=== PATIENT | male | born 1960 | race Caucasian/White ===

== ENCOUNTER 2021-03-18 22:18 | Emergency (ER) | payer OTHER, SELFPAY ==
[2021-03-18 22:20] VITALS: BP 110/72; PULSE 95; RESP 19; TEMP 37.1; O2SAT 97; BMI 28.7
--- NOTE | 2021-03-18 22:46 | DI.CT.S_ITS ---
PROCEDURE: CT ANGIO ABDOMEN PELVIS INDICATIONS: hx of SMA stent with ischemic colitis has LQ pain TECHNIQUE: After the administration of intravenous contrast, 2.5 mm sections acquired from the diaphragm to the iliac crests. 10 mm maximum intensity projection (MIP) coronal and sagittal reformats were then performed. For radiation dose reduction, the following was used: automated exposure control. COMPARISON: [facility], CT, CT CHEST ABDOMEN PELVIS WITH CONTRAST, 08/03/2017, 17:54. [facility], CT, CT ABDOMEN PELVIS WITH CONTRAST, 02/14/2021, 0:47. FINDINGS: Image quality: Excellent. Extravascular tissues: Small bilateral pleural effusions with overlying atelectasis can be seen. Heart size is normal. Liver is normal in size and enhancement. Diffuse fatty liver infiltration is noted. Gallbladder has been removed. Biliary system is non dilated. There is again seen a low-density focus uncinate process pancreas, as on series 6 image 50, measuring 18 mm, which is similar to the prior. Spleen is normal in size and enhancement. No adrenal nodules. Kidneys are normal in size and enhancement, without hydronephrosis. Simple appearing left renal cysts are seen. Areas of focal volume loss can be seen involving the left kidney. Non-opacified bowel loops demonstrate mild prominence and mild wall thickening. There is particular thickening seen involving the ascending colon and transverse colon. Small bowel loops measure up to 3.6 cm. No findings pneumatosis can be seen. No free air. There is mild ascites. No retroperitoneal or mesenteric adenopathy. A mild periumbilical hernia is seen, containing fat. Generalized anasarca is seen. No suspicious bony abnormalities. No vertebral body compression fractures. Age-appropriate bony degenerative changes are seen. Abdominal aorta: Dense atherosclerotic calcification can be seen throughout, with multiple areas of stenosis, including an approximately 80% stenosis distally. There is no flow seen within the left common iliac artery. Reduced flow seen within the left external iliac and left internal iliac arteries. Multifocal narrowing can be seen within the right iliac system. The portal vein is unremarkable. Mesenteric arteries: High-grade stenosis can be seen at the origin of the celiac axis, approximately 80%. There is a patent SMA stent seen. A robust, patent KIRT can be seen. Renal arteries: Single bilateral renal arteries are seen, without ani focal stenosis. IMPRESSION: Patent SMA stent. Generalized atherosclerotic calcification, with several areas high-grade narrowing. 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 Mild dilatation and mild wall thickening can be seen the small bowel in a generalized fashion. There is focal thickening seen involving the ascending colon and the transverse colon. These findings are consistent with ischemic colitis. However, no findings of pneumatosis can be seen. There are small bilateral pleural effusions. Mild ascites is seen. Anasarca is also seen. There is again seen a low-density lesion seen uncinate process pancreas, which may be related to a cyst or cystic neoplasm. Areas of volume loss are seen involving the left kidney. Please correlate prior episodes of infarction or infection. Incidental note is made of: Cholecystectomy Fatty liver infiltration. Simple appearing left renal cysts Fat containing periumbilical hernia Note: No significant discrepancy from the preliminary report. Dictated by: Deven Pichardo M.D. on 03/19/2021 at 7:18 Approved by: Deven Pichardo M.D. on 03/19/2021 at 7:31
--- NOTE | 2021-03-18 22:46 | ED.GENADULT ---
HPI - General Adult General Chief complaint: Abdominal Pain Stated complaint: left lower abdomen pain Time Seen by Provider: 03/18/21 22:28 Source: patient Mode of arrival: EMS Limitations: no limitations History of Present Illness HPI narrative: Patient is a 60-year-old male who was sent over by EMS from his [facility] facility for evaluation of lower abdominal pain. Approximately 10 days ago patient was seen at an outside facility where he had a stent placed in the vessels in his abdomen secondary to a blockage in the vessel. He states he has had this issue in the past. Was subsequently discharged home. Since arriving at the facility he states that the pain medication that they have been giving him does not seem to work as well as the oral Dilaudid. Sometime in the past 24 hours he has noticed an increase in his abdominal discomfort where he states that is in the lower abdomen on the left-hand side. Related Data Allergies Allergy/AdvReac Type Severity Reaction Status Date / Time bupropion [From Wellbutrin] AdvReac Verified 03/19/21 00:51 citalopram [From Celexa] AdvReac Verified 03/19/21 00:51 duloxetine [From Cymbalta] AdvReac Verified 03/19/21 00:51 fentanyl AdvReac Verified 03/19/21 00:51 gabapentin AdvReac Verified 03/19/21 00:51 guanfacine AdvReac Verified 03/19/21 00:51 hydromorphone AdvReac Verified 03/19/21 00:51 lovastatin AdvReac Verified 03/19/21 00:51 milk AdvReac Verified 03/19/21 00:51 naproxen AdvReac Verified 03/19/21 00:51 pravastatin AdvReac Verified 03/19/21 00:51 pregabalin [From Lyrica] AdvReac Verified 03/19/21 00:51 procaine AdvReac Verified 03/19/21 00:51 simvastatin AdvReac Verified 03/19/21 00:51 Eohmjvr-Eig-Nwk Reductase AdvReac Verified 03/19/21 00:51 Inhibitor Review of Systems Constitutional Constitutional: Denies fever(s) Cardiovascular Cardiovascular: Reports system reviewed and no additional complaints, except as documented Respiratory Respiratory: Reports system reviewed and no additional complaints, except as documented Gastrointestinal Gastrointestinal: Reports abdominal pain, Denies change in bowel habits, Denies nausea and Denies vomiting Genitourinary Genitourinary: Denies dysuria Genitourinary: Denies dysuria Integumentary/Breasts Skin/Breast: Denies rash Neurologic Neurologic: Reports system reviewed and no additional complaints, except as documented Hematologic/Lymphatic Hematologic/Lymphatic: Reports system reviewed and no additional complaints, except as documented Allergic/Immunologic Allergic/Immunologic: Reports system reviewed and no additional complaints, except as documented Patient History Medical History Anemia Anxiety Chronic narcotic dependence Chronic pain syndrome Coronary artery disease Depression DVT (deep venous thrombosis) Erectile dysfunction Gastroesophageal reflux disease Hyperlipidemia Hypertension Osteoporosis Social History Smoking Status: Former smoker Exam Initial Vital Signs Initial Vital Signs: Vital Signs Temperature 98.8 F 03/18/21 22:20 Pulse Rate 95 H 03/18/21 22:20 Respiratory Rate 19 03/18/21 22:20 Blood Pressure 110/72 03/18/21 22:20 Pulse Oximetry 97 03/18/21 22:20 Const General: cooperative and comfortable Limitations: mental status not altered [facility] Head: normal to inspection and normocephalic Resp Effort & Inspection: normal respiratory effort Auscultation: clear to auscultation bilaterally Cardio Rate: regular rate Rhythm: regular rhythm GI Inspection: non-distended Palpation: soft, No firm and tender (Generalized tenderness) Skin Lesions: no lesions Rashes: no rashes Neuro General: patient alert, patient awake and patient oriented x3 Cognition: normal cognition Speech: speech normal Extrem General: normal to inspection Psych Appearance: grossly normal and well kempt Course Orders Ordered: ED Orders 03/18/21 22:46 CT angio abdomen pelvis Stat 03/18/21 23:15 Complete Blood Count AUTO DIFF Stat Comprehensive Metabolic Panel Stat Lactate (Lactic Acid) Stat Lipase Stat Discontinued Medications Hydromorphone HCl (Hydromorphone 1 Mg Inj) 1 mg IV NOW ONE Stop: 03/18/21 22:51 Last Admin: 03/18/21 23:20 Dose: 1 mg Documented by: TAYLER Sodium Chloride (Normal Saline 0.9%) 1,000 mls @ 500 mls/hr IV BOLUS ONE Stop: 03/19/21 00:45 Last Infusion: 03/19/21 03:13 Dose: 0 mls/hr Documented by: Admin: 03/18/21 23:20 Dose: 500 mls/hr Documented by: TAYLER Vital Signs Vital signs: Vital Signs - 8 hr 03/18/21 22:20 03/18/21 23:27 03/18/21 23:46 Temperature 98.8 F Pulse Rate 95 H 96 H Respiratory Rate 19 16 16 Blood Pressure 110/72 110/63 118/69 Pulse Oximetry 97 03/18/21 23:47 03/19/21 00:00 03/19/21 00:30 Temperature Pulse Rate 96 H 94 H Respiratory Rate 16 Blood Pressure Pulse Oximetry 96 97 95 03/19/21 01:00 03/19/21 01:30 03/19/21 01:32 Temperature Pulse Rate 96 H 105 H 109 H Respiratory Rate Blood Pressure Pulse Oximetry 98 96 97 03/19/21 01:33 03/19/21 02:00 03/19/21 02:30 Temperature Pulse Rate 110 H 104 H 104 H Respiratory Rate Blood Pressure 118/84 Pulse Oximetry 97 96 97 03/19/21 02:57 Temperature Pulse Rate 96 H Respiratory Rate Blood Pressure 107/59 L Pulse Oximetry 97 Medical Decision Making Medical Records Medical records reviewed: Yes I reviewed the patient's medical records. Lab Data Lab results reviewed: Yes I reviewed the patient's lab results. Result diagrams: 03/18/21 23:15 03/18/21 23:15 Labs: Lab Results 03/18/21 03/18/21 03/18/21 Range/Units 23:15 23:15 23:15 WBC 5.6 (4.5-11.0) X10^3/uL RBC 3.10 L (4.5-5.9) X10^6/uL Hgb 10.4 L (13.5-17.5) g/dL Hct 32.0 L (41-53) % MCV 103.3 H (80-100) fL MCH 33.6 (26-34) PG MCHC 32.5 (30-36) % RDW 17.0 H (11.6-14.8) % Plt Count 255 (150-400) X10^3/uL Neut % (Auto) 61.7 (50-75) % Lymph % (Auto) 23.2 L (25-40) % [place] % (Auto) 12.9 (3-14) % Eos % (Auto) 1.2 L (2-4) % Baso % (Auto) 1.0 (0-2) % Neut # (Auto) 3500 (3866-3825) /uL Lymph # (Auto) 1300 (3646-3879) /uL [place] # (Auto) 700 (0-900) /uL Eos # (Auto) 100 (0-450) /uL Baso # (Auto) 100 (0-100) /uL Sodium 136 L (137-145) mmol/L Potassium 4.5 (3.4-5.1) mmol/L Chloride 108 H (98-107) mmol/L Carbon Dioxide 26 (22-32) mmol/L BUN 10 (9-20) mg/dL Creatinine 0.78 (0.66-1.25) mg/dL Estimated GFR > 60.0 (>60) mL/min BUN/Creatinine Ratio 12.8 (6-22) Glucose 91 (70-100) mg/dL Lactate 1.8 (0.7-2.1) mmol/L Calcium 7.9 L (8.4-10.2) mg/dL Total Bilirubin 1.2 (0.2-1.3) mg/dL AST 102 H (17-59) IU/L ALT 40 (<50) IU/L Alkaline Phosphatase 307 H (38-126) U/L Total Protein 5.8 L (6.3-8.2) g/dL Albumin 2.1 L (3.5-5.0) g/dL Globulin 3.7 (1.7-4.1) g/dL Albumin/Globulin Ratio 0.6 L (1.0-2.8) Lipase (23-300) U/L 03/18/21 Range/Units 23:15 WBC (4.5-11.0) X10^3/uL RBC (4.5-5.9) X10^6/uL Hgb (13.5-17.5) g/dL Hct (41-53) % MCV (80-100) fL MCH (26-34) PG MCHC (30-36) % RDW (11.6-14.8) % Plt Count (150-400) X10^3/uL Neut % (Auto) (50-75) % Lymph % (Auto) (25-40) % [place] % (Auto) (3-14) % Eos % (Auto) (2-4) % Baso % (Auto) (0-2) % Neut # (Auto) (3864-3884) /uL Lymph # (Auto) (5832-3361) /uL [place] # (Auto) (0-900) /uL Eos # (Auto) (0-450) /uL Baso # (Auto) (0-100) /uL Sodium (137-145) mmol/L Potassium (3.4-5.1) mmol/L Chloride (98-107) mmol/L Carbon Dioxide (22-32) mmol/L BUN (9-20) mg/dL Creatinine (0.66-1.25) mg/dL Estimated GFR (>60) mL/min BUN/Creatinine Ratio (6-22) Glucose (70-100) mg/dL Lactate (0.7-2.1) mmol/L Calcium (8.4-10.2) mg/dL Total Bilirubin (0.2-1.3) mg/dL AST (17-59) IU/L ALT (<50) IU/L Alkaline Phosphatase (38-126) U/L Total Protein (6.3-8.2) g/dL Albumin (3.5-5.0) g/dL Globulin (1.7-4.1) g/dL Albumin/Globulin Ratio (1.0-2.8) Lipase 51 (23-300) U/L Imaging Data CT scan - abdomen/pelvis: Radiologist's Impression: Fatty infiltration of the liver Anasarca Diffuse inflammatory thickening with enhancement of the ascending and transverse colon wall in distal small bowel wall consistent with clinical history of ischemic colitis. No signs of bowel perforation or pneumatosis at this time MDM Narrative Medical decision making narrative: Patient's labs are reassuring. The CT scan today does show findings consistent with his history of ischemic colitis. The vessels on his CTA today are patent. Was able to review notes and CT scan from his latest visit at [facility]. The CT report today is very similar to the CT reports that were performed at that time. I do not feel that the CTA changes today are new. They could potentially be causing his abdominal discomfort however I also have some suspicion that the reason that he is here is because the pain medication that he is receiving at the facility is not the oral Dilaudid which he has requested and apparently has helped in the past. I feel we can hold on further workup for now. I informed him that he would have to talk with providers at the facility about changing any of his medications. He was given return precautions. He expressed understanding and agreement. Discharge Plan Departure Patient Disposition: Home Clinical Impression: Abdominal pain Instructions: DI for Abdominal Pain-Adult Activity Restrictions/Additional Instructions: Recommend that you talk with your primary doctor about any changes in your pain medication regiment. Also follow all of the instructions given to you by the vascular surgeons. Return to the emergency department for any new or worsening symptoms
--- NOTE | 2021-03-18 22:59 | PC.NURSE ---
PIV attempt x2 unsuccessful
[2021-03-18] MEDS: HYDROMORPHONE 1 MG INJ IV (23:20)
[2021-03-18] MEDS: SODIUM CHLORIDE 0.9% 1,000 ML 500 ML IV (23:20)
[2021-03-18 23:26] LABS: Add Manual Diff / Slide Review NO; Basophils Absolute Auto 100 /uL (0-100); Eosinophils Absolute Auto 100 /uL (0-450); Eosinophils Percent Auto 1.2 % (2-4); Hemoglobin 10.4 g/dL (13.5-17.5); Lymphocytes Absolute Auto 1300 /uL (1100-4500); Lymphocytes Percent Auto 23.2 % (25-40); Mean Corpuscular HGB Conc 32.5 % (30-36); Mean Corpuscular Hemoglobin 33.6 PG (26-34); Mean Corpuscular Volume 103.3 fL (80-100); Monocytes Absolute Auto 700 /uL (0-900); Monocytes Percent Auto 12.9 % (3-14); Neutrophils Absolute Auto 3500 /uL (1500-7000); Neutrophils Percent Auto 61.7 % (50-75); Platelet Count 255 X10^3/uL (150-400); White Blood Cell Count 5.6 X10^3/uL (4.5-11.0)
[2021-03-18 23:27] VITALS: BP 110/63; PULSE 96; RESP 16
[2021-03-18 23:37] LABS: Alanine Aminotransferase 40 IU/L (<50); Albumin 2.1 g/dL (3.5-5.0); Albumin Globulin Ratio 0.6 (1.0-2.8); Alkaline Phosphatase 307 U/L (38-126); Aspartate Aminotransferase 102 IU/L (17-59); BUN Creatinine Ratio 12.8 (6-22); Bilirubin Total 1.2 mg/dL (0.2-1.3); Blood Urea Nitrogen 10 mg/dL (9-20); Calcium 7.9 mg/dL (8.4-10.2); Carbon Dioxide 26 mmol/L (22-32); Chloride 108 mmol/L (98-107); Estimated Glomerular Filt Rate > 60.0 mL/min (>60); Globulin 3.7 g/dL (1.7-4.1); Glucose 91 mg/dL (70-100); HEMOLYSIS 24 (0-50); Lactate (Lactic Acid) 1.8 mmol/L (0.7-2.1); Lipase 51 U/L (23-300); Potassium 4.5 mmol/L (3.4-5.1); Sodium 136 mmol/L (137-145); Total Protein 5.8 g/dL (6.3-8.2)
[2021-03-18 23:46] VITALS: BP 118/69; RESP 16
[2021-03-18 23:47] VITALS: O2SAT 96
[2021-03-19] VITALS (9 sets, daily range): BP systolic 107–118; BP diastolic 59–84; PULSE 94–110; RESP 16; O2SAT 95–98
== END 2021-03-19 03:15 | disposition home or self-care (01) ==
PROVIDERS: Emergency Provider Emergency Medicine
DX: R10.30 Lower abdominal pain, unspecified (principal)
CPT/HCPCS: 36415; 74174; 80053; 83605; 83690; 85025; 96361; 96374; 99284; J1170; Q9967

== ENCOUNTER 2021-03-20 19:45 | Emergency (ER) | payer OTHER, MEDICAID, SELFPAY ==
[2021-03-20] VITALS (9 sets, daily range): BP systolic 105; BP diastolic 68; PULSE 93–101; RESP 20; TEMP 36.7; O2SAT 96–99
--- NOTE | 2021-03-20 20:09 | ED_ITS ---
HPI - General Adult General Chief complaint: Urogenital-Male Stated complaint: Scrotum pain Time Seen by Provider: 03/20/21 19:46 Source: patient and EMS Mode of arrival: EMS Limitations: no limitations History of Present Illness HPI narrative: Patient is a 60-year-old male who I evaluated in the emergency department approximately 24 hours ago with abdominal discomfort. He does have a significant medical history and has had ischemic colitis and also stents placed in his SMA. A CT scan yesterday showed patent arteries but still is signs of colitis. His labs are unremarkable. He was subsequently discharged home. I felt at that time that much of his discomfort that brought him to the emergency department last evening was related to his lack of pain control at the facility where he is living. He asked several times for Dilaudid in asked me to write him a prescription for Dilaudid that he could have at the care facility. I told him that unfortunately we would be unable to do that in the emergency dep artment. We received a call from the living facility that the patient was being transported back secondary to continued abdominal pain and now also complaining of testicular pain. The patient called EMS himself from his room. Patient states that his abdomen continues to hurt and he also has left-sided groin pain. Related Data Allergies Allergy/AdvReac Type Severity Reaction Status Date / Time bupropion [From Wellbutrin] AdvReac Verified 03/19/21 00:51 citalopram [From Celexa] AdvReac Verified 03/19/21 00:51 duloxetine [From Cymbalta] AdvReac Verified 03/19/21 00:51 fentanyl AdvReac Verified 03/19/21 00:51 gabapentin AdvReac Verified 03/19/21 00:51 guanfacine AdvReac Verified 03/19/21 00:51 lovastatin AdvReac Verified 03/19/21 00:51 milk AdvReac Verified 03/19/21 00:51 naproxen AdvReac Verified 03/19/21 00:51 pravastatin AdvReac Verified 03/19/21 00:51 pregabalin [From Lyrica] AdvReac Verified 03/19/21 00:51 procaine AdvReac Verified 03/19/21 00:51 simvastatin AdvReac Verified 03/19/21 00:51 Sqgneta-Iqq-Plc Reductase AdvReac Verified 03/19/21 00:51 Inhibitor Review of Systems Constitutional Constitutional: Denies fever(s) Gastrointestinal Gastrointestinal: Reports abdominal pain Genitourinary Comments: Left-sided groin pain Integumentary/Breasts Skin/Breast: Reports system reviewed and no additional complaints, except as documented Neurologic Neurologic: Reports system reviewed and no additional complaints, except as documented Hematologic/Lymphatic On Anticoagulants: No Allergic/Immunologic Allergic/Immunologic: Reports system reviewed and no additional complaints, except as documented Patient History Medical History Anemia Anxiety Chronic narcotic dependence Chronic pain syndrome Coronary artery disease Depression DVT (deep venous thrombosis) Erectile dysfunction Gastroesophageal reflux disease Hyperlipidemia Hypertension Osteoporosis Social History Smoking Status: Former smoker Smoking Status: Former smoker Substance Use Type: former substance user Exam Initial Vital Signs Initial Vital Signs: Vital Signs Temperature 98.1 F 03/20/21 19:49 Pulse Rate 96 H 03/20/21 19:49 Respiratory Rate 20 03/20/21 19:49 Blood Pressure 105/68 03/20/21 19:49 Pulse Oximetry 96 03/20/21 19:49 Const General: cooperative HENMT Head: normal to inspection and normocephalic Resp Effort & Inspection: normal respiratory effort Auscultation: clear to auscultation bilaterally Cardio Rate: regular rate Rhythm: regular rhythm GI Palpation: soft and tender (Diffusely tender) Other: Left-sided scrotal swelling Difficult to palpate testicles Skin Lesions: no lesions Rashes: no rashes Extrem General: capillary refill normal Psych Appearance: well kempt Course Orders Ordered: ED Orders 03/20/21 20:09 US scrotum Stat 03/20/21 21:54 Consult After Hours PICC Line RN Stat 03/20/21 22:19 Complete Blood Count AUTO DIFF Stat Comprehensive Metabolic Panel Stat Lactate (Lactic Acid) Stat Lipase Stat Discontinued Medications Hydromorphone HCl (Hydromorphone 1 Mg Inj) 1 mg IV NOW ONE Stop: 03/20/21 20:14 Last Admin: 03/20/21 21:10 Dose: 1 mg Documented by: PAULA Hydromorphone HCl (Hydromorphone 1 Mg Inj) 1 mg IM NOW ONE Stop: 03/20/21 23:08 Last Admin: 03/20/21 23:31 Dose: 1 mg Documented by: KGALLAG Sodium Chloride (Normal Saline 0.9%) 1,000 mls @ 125 mls/hr IV CONT KILO Last Admin: 03/20/21 22:00 Dose: Not Given Documented by: PAULA Vital Signs Vital signs: Vital Signs - 8 hr 03/20/21 20:30 03/20/21 21:00 03/20/21 21:30 Pulse Rate 98 H 97 H 97 H Respiratory Rate Blood Pressure Pulse Oximetry 97 97 97 03/20/21 22:00 03/20/21 22:30 03/20/21 23:00 Pulse Rate 93 H 101 H 101 H Respiratory Rate Blood Pressure Pulse Oximetry 99 99 99 03/20/21 23:30 03/21/21 00:00 03/21/21 00:20 Pulse Rate 98 H 95 H 98 H Respiratory Rate Blood Pressure 98/56 L Pulse Oximetry 99 95 97 03/21/21 00:30 03/21/21 00:37 03/21/21 00:43 Pulse Rate 98 H 96 H 87 Respiratory Rate 18 Blood Pressure 87/53 L 96/53 L 98/56 L Pulse Oximetry 96 97 97 Medical Decision Making Lab Data Lab results reviewed: Yes I reviewed the patient's lab results. Result diagrams: 03/20/21 22:19 03/20/21 22:19 Labs: Lab Results 03/20/21 03/20/21 03/20/21 Range/Units 22:19 22:19 22:19 WBC 5.9 (4.5-11.0) X10^3/uL RBC 2.62 L (4.5-5.9) X10^6/uL Hgb 9.0 L (13.5-17.5) g/dL Hct 27.8 L (41-53) % MCV 106.1 H (80-100) fL MCH 34.4 H (26-34) PG MCHC 32.5 (30-36) % RDW 16.9 H (11.6-14.8) % Plt Count 256 (150-400) X10^3/uL Neut % (Auto) 66.9 (50-75) % Lymph % (Auto) 17.1 L (25-40) % [place] % (Auto) 13.2 (3-14) % Eos % (Auto) 1.0 L (2-4) % Baso % (Auto) 1.8 (0-2) % Neut # (Auto) 4000 (8214-1457) /uL Lymph # (Auto) 1000 L (8315-5114) /uL [place] # (Auto) 800 (0-900) /uL Eos # (Auto) 100 (0-450) /uL Baso # (Auto) 100 (0-100) /uL Sodium 136 L (137-145) mmol/L Potassium 4.2 (3.4-5.1) mmol/L Chloride 108 H (98-107) mmol/L Carbon Dioxide 25 (22-32) mmol/L BUN 11 (9-20) mg/dL Creatinine 0.71 (0.66-1.25) mg/dL Estimated GFR > 60.0 (>60) mL/min BUN/Creatinine Ratio 15.5 (6-22) Glucose 75 (70-100) mg/dL Lactate 1.4 (0.7-2.1) mmol/L Calcium 7.7 L (8.4-10.2) mg/dL Total Bilirubin 1.0 (0.2-1.3) mg/dL AST 69 H (17-59) IU/L ALT 29 (<50) IU/L Alkaline Phosphatase 254 H (38-126) U/L Total Protein 4.8 L (6.3-8.2) g/dL Albumin 1.7 L (3.5-5.0) g/dL Globulin 3.1 (1.7-4.1) g/dL Albumin/Globulin Ratio 0.5 L (1.0-2.8) Lipase 55 (23-300) U/L Imaging Data Scrotal ultrasound: Radiologist's Impression: Atrophic testicles in the lower inguinal canal bilateral. No testicular mass Marked scrotal wall edema MDM Narrative Medical decision making narrative: Patient's labs today are unchanged from yesterday. His abdominal exam today is the same as yesterday. He does have atrophic testicles bilaterally however the ultrasound result today is similar to what is seen on the CT scan yesterday. I had a long discussion with the patient regarding his symptoms. I asked him if he was here because he felt like he was not receiving proper pain control at the facility where he is staying or if he is having new pain. He states that his abdominal pain is continuing and he also does not think that he is getting the proper pain control. He again asked for Dilaudid and informed him that he would need to talk with the providers at the facility for this. He also states he was never told that he was going to have a reduction in his pain medication. He states that while he was in the hospital he was given pain medication every 4 hours and now he states that he is getting and every 10 hours. I informed him that if it was a pain control issue that he would need to talk with the prescribers about this but if his symptoms were worsening or if he was developing new symptoms that he should return to the emergency department because he did have significant intra-abdominal issues. I do not feel the need today based on his exam yesterday and today and his labs that we need to repeat a CT scan. Discharge Plan Departure Patient Disposition: Home Clinical Impression: Abdominal pain Instructions: DI for Chronic Pain -- Adult Activity Restrictions/Additional Instructions: Unfortunately we cannot make any changes to your pain management regiment from [facility] emergency department. This will have to come with the providers at the facility where your staying. I do recommend you continue all of your medications as directed. Return to the emergency department for any new or worsening symptoms
--- NOTE | 2021-03-20 20:09 | DI.US.S_ITS ---
PROCEDURE: US SCROTUM INDICATIONS: LEFT > RIGHT TESTICULAR PAIN TECHNIQUE: Real-time scanning was performed of the scrotum and testicles, with image documentation. Color and pulse Doppler interrogation was performed of both testicles. COMPARISON: None. FINDINGS: Right: Testicle is positioned in the lower inguinal canal and measures 2.9 x 0.9 x 1.1 cm. There is minimal intrinsic arterial flow with marked overlying edema measuring 2.1 centimeters. The epididymis on the right is not identified. Left: Testicle is positioned in the lower inguinal canal and measures 1.9 x 1.5 x 0.8 cm. There is minimal vascularity, venous with marked overlying scrotal wall edema, 2.1 centimeters. Epididymis is on the left not identified. Doppler: Color and pulse Doppler demonstrate normal and symmetric arterial flow in both testicles. IMPRESSION: 1. Atrophic testicles in the lower inguinal canal bilaterally with decreased vascularity. 2. No testicular mass. 3. Marked scrotal wall edema. Comment: Final report is concordant with preliminary interpretation by [facility] Dictated by: Jorge Pardo M.D. on 03/21/2021 at 8:06 Approved by: Jorge Pardo M.D. on 03/21/2021 at 8:12
[2021-03-20] MEDS: HYDROMORPHONE 1 MG INJ IV (21:10)
--- NOTE | 2021-03-20 22:40 | PC.NURSE ---
patient complains that his abdominal pain is worse than yesterday. He is able to pass stool and gas and is urinating frequently. He has pain in his legs and scrotum as well. His left leg has edema +[address] up his left lateral leg, hip, and buttock.
[2021-03-20 22:45] LABS: Add Manual Diff / Slide Review NO; Basophils Absolute Auto 100 /uL (0-100); Basophils Percent Auto 1.8 % (0-2); Eosinophils Absolute Auto 100 /uL (0-450); Hematocrit 27.8 % (41-53); Lymphocytes Absolute Auto 1000 /uL (1100-4500); Lymphocytes Percent Auto 17.1 % (25-40); Mean Corpuscular HGB Conc 32.5 % (30-36); Mean Corpuscular Hemoglobin 34.4 PG (26-34); Mean Corpuscular Volume 106.1 fL (80-100); Monocytes Absolute Auto 800 /uL (0-900); Monocytes Percent Auto 13.2 % (3-14); Neutrophils Absolute Auto 4000 /uL (1500-7000); Neutrophils Percent Auto 66.9 % (50-75); Platelet Count 256 X10^3/uL (150-400); Red Blood Cell Count 2.62 X10^6/uL (4.5-5.9); Red Cell Distribution Width 16.9 % (11.6-14.8); White Blood Cell Count 5.9 X10^3/uL (4.5-11.0)
[2021-03-20 22:48] LABS: Lactate (Lactic Acid) 1.4 mmol/L (0.7-2.1)
[2021-03-20 22:51] LABS: Alanine Aminotransferase 29 IU/L (<50); Albumin 1.7 g/dL (3.5-5.0); Albumin Globulin Ratio 0.5 (1.0-2.8); Alkaline Phosphatase 254 U/L (38-126); Aspartate Aminotransferase 69 IU/L (17-59); BUN Creatinine Ratio 15.5 (6-22); Blood Urea Nitrogen 11 mg/dL (9-20); Calcium 7.7 mg/dL (8.4-10.2); Carbon Dioxide 25 mmol/L (22-32); Chloride 108 mmol/L (98-107); Estimated Glomerular Filt Rate > 60.0 mL/min (>60); Globulin 3.1 g/dL (1.7-4.1); Glucose 75 mg/dL (70-100); HEMOLYSIS 21 (0-50); Lipase 55 U/L (23-300); Potassium 4.2 mmol/L (3.4-5.1); Sodium 136 mmol/L (137-145); Total Protein 4.8 g/dL (6.3-8.2)
[2021-03-20] MEDS: HYDROMORPHONE 1 MG INJ IM (23:31)
[2021-03-21] VITALS: PULSE 95; O2SAT 95
[2021-03-21 00:20] VITALS: BP 98/56; PULSE 98; O2SAT 97
[2021-03-21 00:30] VITALS: BP 87/53; PULSE 98; O2SAT 96
[2021-03-21 00:37] VITALS: BP 96/53; PULSE 96; O2SAT 97
[2021-03-21 00:43] VITALS: BP 98/56; PULSE 87; RESP 18; O2SAT 97
== END 2021-03-21 00:44 | disposition home or self-care (01) ==
PROVIDERS: Emergency Provider Emergency Medicine
DX: R10.9 Unspecified abdominal pain (principal)
CPT/HCPCS: 36415; 76870; 80053; 83605; 83690; 85025; 96372; 96374; 99283; 99284; J1170

== ENCOUNTER 2021-03-24 06:00 | Emergency (ER) | payer OTHER, MEDICAID, SELFPAY ==
[2021-03-24] VITALS (17 sets, daily range): BP systolic 96–107; BP diastolic 55–66; PULSE 85–104; RESP 14–23; TEMP 36.7; O2SAT 94–99
--- NOTE | 2021-03-24 06:27 | ED_ITS ---
HPI - Abdominal Pain <Rosalva Connors DO - Last Filed: 03/25/21 01:16> General Chief Complaint: Urogenital-Male Stated Complaint: Testicles swollen Time Seen by Provider: 03/24/21 06:08 Source: patient, EMS and old records reviewed Mode of arrival: EMS Limitations: no limitations History of Present Illness HPI narrative: Patient is a 60-year-old female with history of SMA stent for ischemic colitis on March 08 placed at [facility]. He has since been to the emergency department 2 other times this is his 3rd visit. He was initially seen on 03/18/2021 for increased pain. At that time he had an abdominal CT and blood work, and was later discharged back to the facility. He returned 24 hours later with increased scrotum pain and swelling. During that visit he had scrotal ultrasound is which showed testicular atrophy. Today he is complaining of similar pain both in his scrotum and his abdomen. He was previously getting dilaudid which he apparently is not getting any more but is now getting Percocet. He says he had a normal bowel movement yesterday. He has pain all over his abdomen. Related Data Allergies Allergy/AdvReac Type Severity Reaction Status Date / Time bupropion [From Wellbutrin] AdvReac Verified 03/19/21 00:51 citalopram [From Celexa] AdvReac Verified 03/19/21 00:51 duloxetine [From Cymbalta] AdvReac Verified 03/19/21 00:51 fentanyl AdvReac Verified 03/19/21 00:51 gabapentin AdvReac Verified 03/19/21 00:51 guanfacine AdvReac Verified 03/19/21 00:51 lovastatin AdvReac Verified 03/19/21 00:51 milk AdvReac Verified 03/19/21 00:51 naproxen AdvReac Verified 03/19/21 00:51 pravastatin AdvReac Verified 03/19/21 00:51 pregabalin [From Lyrica] AdvReac Verified 03/19/21 00:51 procaine AdvReac Verified 03/19/21 00:51 simvastatin AdvReac Verified 03/19/21 00:51 Xibwpxy-Pup-Maj Reductase AdvReac Verified 03/19/21 00:51 Inhibitor <Mallory Dolan MD - Last Filed: 03/24/21 18:24> History of Present Illness HPI narrative: 60-year-old gentleman with care assumed from Dr. Connors. Presents complaining of increasing pain and edema. He had ischemic colitis with SMA stent placed in [place] on March 08 and was eventually discharged to [facility] for rehab. He has been seen in the emergency department on March 18, and again today, the all with continued complaints of abdominal pain. Today he continues to complain of abdominal pain and lower extremity edema. He in fact has anasarca. This has not been a prior problem for him but was commented on with the CT scan from March 18. He is currently on [address] daily[address] scan on March 18 does note mild dilation and mild wall thickening within the small bowel in a generalized fashion. Focal thickening along the ascending colon and the transverse colon consistent with ischemic colitis with no evidence of pneumatosis. Discussed his care with Ms. Cheema nurse practitioner at [facility]. She notes that he had been having some difficulties with stooling but eventually in the last 2 days that seems to a sorted itself out. He has been relatively hy potensive with blood pressures ranging from 97/61 to 138/66 throughout his whole stay. She has not noticed significant edema until recently. She does note that pain and pain control has continued to be an issue. Patient has a history of opiate use disorder. He states that he stopped his pain medicines and 2017. He still has addiction behaviors and he does not seem to recognize these as addict ion behaviors. Apparently pain regimen was reviewed with Dr. Cope and currently he is on a regimen of 5 mg of Percocet every 6 hours with a continued wean planned. Nursing staff states that he has declined pain medications and requested other medications and IV medications. Clearly this has been a struggle Patient states that he is too weak to get out of bed and because he is in quarantine they are not offering him rehab. retirement staff states that rehab staff has been trying to work with him but he has been unwilling to get out of bed. Review of Systems <Roaslva Connors DO - Last Filed: 03/25/21 01:16> Review of Systems ROS Unobtainable: All systems reviewed & are unremarkable except as noted in HPI and below Constitutional Constitutional: Denies chills, Denies fever(s), Denies lethargy and Denies weakness Cardiovascular Cardiovascular: Denies chest pain, Denies irregular heart rhythm, Denies lightheadedness, Denies palpitations, Denies dyspnea, Denies dyspnea on exertion and Denies orthopnea Respiratory Respiratory: Denies cough, Denies dyspnea, Denies dyspnea on exertion and Denies wheezing Gastrointestinal Gastrointestinal: Reports as per HPI and Reports abdominal pain Musculoskeletal Musculoskeletal: Denies arthralgias and Denies back pain Integumentary/Breasts Skin/Breast: Denies pruritus, Denies erythema, Denies rash and Denies wounds Neurologic Neurologic: Denies weakness Endocrine Endocrine: Denies palpitations Allergic/Immunologic Allergic/Immunologic: Denies wheezing Patient History <Rosalva Connors DO - Last Filed: 03/25/21 01:16> Medical History (Updated 03/24/21 @ 13:47 by Mallory Dolan MD) Anemia Anxiety Chronic narcotic dependence Chronic pain syndrome Coronary artery disease Depression DVT (deep venous thrombosis) Erectile dysfunction Gastroesophageal reflux disease Hyperlipidemia Hypertension Ischemic colitis Osteoporosis Social History Smoking Status: Former smoker Smoking Status: Former smoker Substance Use Type: former substance user Exam <Rosalva Connors DO - Last Filed: 03/25/21 01:16> Initial Vital Signs Initial Vital Signs: Vital Signs Temperature 98.1 F 03/24/21 06:19 Pulse Rate 104 H 03/24/21 06:19 Respiratory Rate 17 03/24/21 06:19 Blood Pressure 107/66 03/24/21 06:19 Pulse Oximetry 99 03/24/21 06:19 GENERAL: Alert 60-year-old male appears in pain and in [no acute] distress. HEENT: Head atraumatic,EOMI, pupils reactive, face symmetric, [moist] mucous membranes CARDIOVASCULAR: Regular rate and rhythm without murmurs, rubs or gallops. RESPIRATORY: Breath sounds equal bilaterally, no wheezes rales or rhonchi. ABDOMEN: Soft, the vertical scar noted from diaphragm to umbilicus. He has definite diffuse pain no distention no guarding or rebound : Bilateral swollen testicular exam no erythema or pain EXTREMITIES: Normal range of motion, no clubbing or edema. Neurovascularly intact NEUROLOGICAL: Alert and oriented x4. SKIN: Warm, dry, no laceration, no petechiae, no rashes or lesions. <Mallory Dolan MD - Last Filed: 03/24/21 18:24> Initial Vital Signs Initial Vital Signs: Vital Signs Temperature 98.1 F 03/24/21 06:19 Pulse Rate 104 H 03/24/21 06:19 Respiratory Rate 17 03/24/21 06:19 Blood Pressure 107/66 03/24/21 06:19 Pulse Oximetry 99 03/24/21 06:19 Course <Rosalva Connors DO - Last Filed: 03/25/21 01:16> Orders Ordered: Discontinued Medications Furosemide (Furosemide 100 Mg/10 Ml Vial) 60 mg IV NOW ONE Stop: 03/24/21 09:31 Last Admin: 03/24/21 09:36 Dose: 60 mg Documented by: VERNON Hydromorphone HCl (Hydromorphone 1 Mg Inj) 1 mg IM NOW ONE Stop: 03/24/21 06:40 Last Admin: 03/24/21 07:23 Dose: 1 mg Documented by: KAI Ondansetron HCl (Ondansetron 4 Mg/2 Ml Inj) 4 mg IV NOW ONE Stop: 03/24/21 07:46 Last Admin: 03/24/21 07:53 Dose: 4 mg Documented by: KAI Oxycodone HCl (Oxycodone Ir 5 Mg Tablet) 15 mg PO NOW ONE Stop: 03/24/21 09:04 Last Admin: 03/24/21 09:36 Dose: 15 mg Documented by: VERNON Vital Signs Vital signs: Vital Signs - 8 hr 03/24/21 10:30 03/24/21 11:00 03/24/21 11:30 Temperature Pulse Rate 93 H 96 H 91 H Respiratory Rate 17 16 Blood Pressure Pulse Oximetry 97 96 95 03/24/21 12:00 03/24/21 12:30 03/24/21 13:00 Temperature Pulse Rate 91 H 87 86 Respiratory Rate 20 14 Blood Pressure Pulse Oximetry 96 96 95 03/24/21 13:30 03/24/21 13:53 03/24/21 14:14 Temperature 98.0 F Pulse Rate 86 89 Respiratory Rate 16 23 Blood Pressure 100/56 L Pulse Oximetry 96 97 <Mallory Dolan MD - Last Filed: 03/24/21 18:24> Orders Ordered: Discontinued Medications Furosemide (Furosemide 100 Mg/10 Ml Vial) 60 mg IV NOW ONE Stop: 03/24/21 09:31 Last Admin: 03/24/21 09:36 Dose: 60 mg Documented by: VERNON Hydromorphone HCl (Hydromorphone 1 Mg Inj) 1 mg IM NOW ONE Stop: 03/24/21 06:40 Last Admin: 03/24/21 07:23 Dose: 1 mg Documented by: KAI Ondansetron HCl (Ondansetron 4 Mg/2 Ml Inj) 4 mg IV NOW ONE Stop: 03/24/21 07:46 Last Admin: 03/24/21 07:53 Dose: 4 mg Documented by: KAI Oxycodone HCl (Oxycodone Ir 5 Mg Tablet) 15 mg PO NOW ONE Stop: 03/24/21 09:04 Last Admin: 03/24/21 09:36 Dose: 15 mg Documented by: VERNON Vital Signs Vital signs: Vital Signs - 8 hr 03/24/21 10:30 03/24/21 11:00 03/24/21 11:30 Temperature Pulse Rate 93 H 96 H 91 H Respiratory Rate 17 16 Blood Pressure Pulse Oximetry 97 96 95 03/24/21 12:00 03/24/21 12:30 03/24/21 13:00 Temperature Pulse Rate 91 H 87 86 Respiratory Rate 20 14 Blood Pressure Pulse Oximetry 96 96 95 03/24/21 13:30 03/24/21 13:53 03/24/21 14:14 Temperature 98.0 F Pulse Rate 86 89 Respiratory Rate 16 23 Blood Pressure 100/56 L Pulse Oximetry 96 97 MDM - Abdominal Pain <Rosalva Connors DO - Last Filed: 03/25/21 01:16> Lab Data Attestation: I reviewed the patient's lab results. Result diagrams: 03/24/21 06:40 03/24/21 06:40 Labs: Lab Results 03/24/21 03/24/21 03/24/21 Range/Units 06:40 06:40 06:40 WBC 6.0 (4.5-11.0) X10^3/uL RBC 2.78 L (4.5-5.9) X10^6/uL Hgb 9.7 L (13.5-17.5) g/dL Hct 29.5 L (41-53) % MCV 106.3 H (80-100) fL MCH 34.8 H (26-34) PG MCHC 32.8 (30-36) % RDW 19.3 H (11.6-14.8) % Plt Count 371 (150-400) X10^3/uL Neut % (Auto) 63.8 (50-75) % Lymph % (Auto) 22.8 L (25-40) % Nobles % (Auto) 10.8 (3-14) % Eos % (Auto) 2.0 (2-4) % Baso % (Auto) 0.6 (0-2) % Neut # (Auto) 3800 (9988-6776) /uL Lymph # (Auto) 1400 (2444-9168) /uL Nobles # (Auto) 600 (0-900) /uL Eos # (Auto) 100 (0-450) /uL Baso # (Auto) 0 (0-100) /uL Sodium 135 L (137-145) mmol/L Potassium 3.9 (3.4-5.1) mmol/L Chloride 106 (98-107) mmol/L Carbon Dioxide 26 (22-32) mmol/L BUN 12 (9-20) mg/dL Creatinine 0.73 (0.66-1.25) mg/dL Estimated GFR > 60.0 (>60) mL/min BUN/Creatinine Ratio 16.4 (6-22) Glucose 91 (70-100) mg/dL Lactate 1.7 (0.7-2.1) mmol/L Calcium 7.8 L (8.4-10.2) mg/dL Total Bilirubin 0.8 (0.2-1.3) mg/dL AST 55 (17-59) IU/L ALT 26 (<50) IU/L Alkaline Phosphatase 258 H (38-126) U/L Total Creatine Kinase 22 L (55-170) U/L CK-MB (CK-2) TNP CK-MB (CK-2) Rel Index TNP Troponin I < 0.012 (0.01-0.034) ng/mL NT-Pro-B Natriuret Pep 732 H (<125) pg/mL Total Protein 5.5 L (6.3-8.2) g/dL Albumin 1.8 L (3.5-5.0) g/dL Globulin 3.7 (1.7-4.1) g/dL Albumin/Globulin Ratio 0.5 L (1.0-2.8) Ur Bilirubin Confirm (Negative) 03/24/21 Range/Units 09:32 WBC (4.5-11.0) X10^3/uL RBC (4.5-5.9) X10^6/uL Hgb (13.5-17.5) g/dL Hct (41-53) % MCV (80-100) fL MCH (26-34) PG MCHC (30-36) % RDW (11.6-14.8) % Plt Count (150-400) X10^3/uL Neut % (Auto) (50-75) % Lymph % (Auto) (25-40) % Nobles % (Auto) (3-14) % Eos % (Auto) (2-4) % Baso % (Auto) (0-2) % Neut # (Auto) (3887-2384) /uL Lymph # (Auto) (0879-1426) /uL Nobles # (Auto) (0-900) /uL Eos # (Auto) (0-450) /uL Baso # (Auto) (0-100) /uL Sodium (137-145) mmol/L Potassium (3.4-5.1) mmol/L Chloride (98-107) mmol/L Carbon Dioxide (22-32) mmol/L BUN (9-20) mg/dL Creatinine (0.66-1.25) mg/dL Estimated GFR (>60) mL/min BUN/Creatinine Ratio (6-22) Glucose (70-100) mg/dL Lactate (0.7-2.1) mmol/L Calcium (8.4-10.2) mg/dL Total Bilirubin (0.2-1.3) mg/dL AST (17-59) IU/L ALT (<50) IU/L Alkaline Phosphatase (38-126) U/L Total Creatine Kinase (55-170) U/L CK-MB (CK-2) CK-MB (CK-2) Rel Index Troponin I (0.01-0.034) ng/mL NT-Pro-B Natriuret Pep (<125) pg/mL Total Protein (6.3-8.2) g/dL Albumin (3.5-5.0) g/dL Globulin (1.7-4.1) g/dL Albumin/Globulin Ratio (1.0-2.8) Ur Bilirubin Confirm Positive H (Negative) Point of care testing: Urine Dip Bedside Urine Glucose Negative Bedside Urine Bilirubin ++ 2 Bedside Urine Ketone - Negative Urine Specific [place] 1.025 Bedside Urine Occult Blood - Negative Bedside Urine pH 6 Bedside Urine Protein +/- 15 Bedside Urine Urobilinogen - Negative Bedside Urine Nitrite - Negative Bedside Urine Leukocytes - Negative Esterase MDM Narrative Medical decision making narrative: Blood work pending Signed out to Dr. Dolan <Mallory Dolan MD - Last Filed: 03/24/21 18:24> Medical Records Attestation: I reviewed the patient's medical records. Lab Data Attestation: I reviewed the patient's lab results. Labs: Lab Results 03/24/21 03/24/21 03/24/21 Range/Units 06:40 06:40 06:40 WBC 6.0 (4.5-11.0) X10^3/uL RBC 2.78 L (4.5-5.9) X10^6/uL Hgb 9.7 L (13.5-17.5) g/dL Hct 29.5 L (41-53) % MCV 106.3 H (80-100) fL MCH 34.8 H (26-34) PG MCHC 32.8 (30-36) % RDW 19.3 H (11.6-14.8) % Plt Count 371 (150-400) X10^3/uL Neut % (Auto) 63.8 (50-75) % Lymph % (Auto) 22.8 L (25-40) % Nobles % (Auto) 10.8 (3-14) % Eos % (Auto) 2.0 (2-4) % Baso % (Auto) 0.6 (0-2) % Neut # (Auto) 3800 (0501-3953) /uL Lymph # (Auto) 1400 (5578-4897) /uL Nobles # (Auto) 600 (0-900) /uL Eos # (Auto) 100 (0-450) /uL Baso # (Auto) 0 (0-100) /uL Sodium 135 L (137-145) mmol/L Potassium 3.9 (3.4-5.1) mmol/L Chloride 106 (98-107) mmol/L Carbon Dioxide 26 (22-32) mmol/L BUN 12 (9-20) mg/dL Creatinine 0.73 (0.66-1.25) mg/dL Estimated GFR > 60.0 (>60) mL/min BUN/Creatinine Ratio 16.4 (6-22) Glucose 91 (70-100) mg/dL Lactate 1.7 (0.7-2.1) mmol/L Calcium 7.8 L (8.4-10.2) mg/dL Total Bilirubin 0.8 (0.2-1.3) mg/dL AST 55 (17-59) IU/L ALT 26 (<50) IU/L Alkaline Phosphatase 258 H (38-126) U/L Total Creatine Kinase 22 L (55-170) U/L CK-MB (CK-2) TNP CK-MB (CK-2) Rel Index TNP Troponin I < 0.012 (0.01-0.034) ng/mL NT-Pro-B Natriuret Pep 732 H (<125) pg/mL Total Protein 5.5 L (6.3-8.2) g/dL Albumin 1.8 L (3.5-5.0) g/dL Globulin 3.7 (1.7-4.1) g/dL Albumin/Globulin Ratio 0.5 L (1.0-2.8) Ur Bilirubin Confirm (Negative) 03/24/21 Range/Units 09:32 WBC (4.5-11.0) X10^3/uL RBC (4.5-5.9) X10^6/uL Hgb (13.5-17.5) g/dL Hct (41-53) % MCV (80-100) fL MCH (26-34) PG MCHC (30-36) % RDW (11.6-14.8) % Plt Count (150-400) X10^3/uL Neut % (Auto) (50-75) % Lymph % (Auto) (25-40) % Nobles % (Auto) (3-14) % Eos % (Auto) (2-4) % Baso % (Auto) (0-2) % Neut # (Auto) (3874-6262) /uL Lymph # (Auto) (0743-0600) /uL Nobles # (Auto) (0-900) /uL Eos # (Auto) (0-450) /uL Baso # (Auto) (0-100) /uL Sodium (137-145) mmol/L Potassium (3.4-5.1) mmol/L Chloride (98-107) mmol/L Carbon Dioxide (22-32) mmol/L BUN (9-20) mg/dL Creatinine (0.66-1.25) mg/dL Estimated GFR (>60) mL/min BUN/Creatinine Ratio (6-22) Glucose (70-100) mg/dL Lactate (0.7-2.1) mmol/L Calcium (8.4-10.2) mg/dL Total Bilirubin (0.2-1.3) mg/dL AST (17-59) IU/L ALT (<50) IU/L Alkaline Phosphatase (38-126) U/L Total Creatine Kinase (55-170) U/L CK-MB (CK-2) CK-MB (CK-2) Rel Index Troponin I (0.01-0.034) ng/mL NT-Pro-B Natriuret Pep (<125) pg/mL Total Protein (6.3-8.2) g/dL Albumin (3.5-5.0) g/dL Globulin (1.7-4.1) g/dL Albumin/Globulin Ratio (1.0-2.8) Ur Bilirubin Confirm Positive H (Negative) Point of care testing: Urine Dip Bedside Urine Glucose Negative Bedside Urine Bilirubin ++ 2 Bedside Urine Ketone - Negative Urine Specific [place] 1.025 Bedside Urine Occult Blood - Negative Bedside Urine pH 6 Bedside Urine Protein +/- 15 Bedside Urine Urobilinogen - Negative Bedside Urine Nitrite - Negative Bedside Urine Leukocytes - Negative Esterase Imaging Data CTA Chest/Abd/pelvis: Radiologist's Impression: FINDINGS: Image quality: Excellent. AORTA: Intramural hematoma: Absent Maximum hematoma thickness: Not applicable Focal contrast enhancement: Intramural blood pool (< 2 mm neck or imperceptible communication with aortic lumen): Absent . Ulcer-like projection (broad communication with aortic lumen > 3 mm): Absent . Dissection: Absent Jerry classification: Not applicable Maximum aortic diameter: No aneurysm found. Periaortic hematoma: Absent . CHEST: Lungs and pleura: No acute airspace opacities are seen that would indicate likelihood of pneumonia. There is dependent atelectasis, associated with bilateral water density pleural effusions. This is best seen at the lung bases, some. No pleural effusions or pneumothorax. Central and peripheral airways are patent and normal in caliber. Mediastinum: Heart size is normal. No pericardial effusion. No mediastinal or hilar adenopathy by size criteria. Central pulmonary arteries are normal in size, and no pulmonary embolus is found.. Esophagus is normal in caliber. No hiatal hernias. Bones and chest wall: No axillary adenopathy by size criteria. Thyroid gland appears normal where well seen. No suspicious bony lesions. No vertebral body compression fractures. ABDOMEN: Vasculature: Celiac trunk and mesenteric arteries are patent. Renal arteries are also patent. Solid organs: Liver is normal in ize and enhancement. Gallbladder appears previously resected . Biliary system is non dilated. Pancreas enhances normally. Spleen is normal in size and enhancement. No adrenal nodules. Both kidneys are normal in size and enhancement, without hydronephrosis. Peritoneum and bowel: No free air. Bowel loops are normal in caliber and wall thickness. There is water density free fluid within the peritoneal space, [id number] in quantity. This extends into the pelvis. Nodes and vessels: No retroperitoneal or mesenteric adenopathy by size criteria. Inferior vena cava is normal in morphology. There is a reportedly recently placed superior mesenteric artery vascular stent that appears to protrude into the aortic lumen by approximately 6 mm. This stent appears patent with flow extending into the superior mesenteric artery branches more inferiorly. The aorta demonstrates calcific plaquing that is relatively dense, partially reducing the luminal diameter of the aorta. For example, on series 15, image 70, approximately 1/2 of the aortic lumen is filled by calcific plaque. Miscellaneous: No ventral hernias. PELVIS: Genitourinary: Bladder wall thickness is normal. Miscellaneous: No inguinal hernias or adenopathy. No ventral hernias. Water density moderate free fluid is seen within the peritoneal space of the pelvis, moderate in quantity. No area of rim enhancing fluid collection suggestive of abscess formation is seen. Bones: No suspicious bony lesions. No vertebral body compression fractures. IMPRESSION: 1. No aneurysm or dissection involving the aorta is found. 2. The aortic caliber within the abdomen is narrowed due to calcific plaquing, and in 1 area approximately 1/2 of the lumen of the aorta is calcific plaque filled. None 3. A superior mesenteric artery stent is in place, reportedly recently placed. There is protrusion of the proximal stent orifice approximately 6 mm into the aortic lumen, approximating posterior calcific plaquing. The stent appears patent, it is unclear whether there is a degree of compromise of stent function associated with this appearance. 4. There is is a small to moderate bilateral pleural effusion, with secondary atelectasis, and also free fluid to a [id number] degree within the perit weiss space. Body wall anasarca noted. Dictated by: Maikel Carr M.D. on 03/24/2021 at 10:48 MDM Narrative Medical decision making narrative: 60-year-old gentleman with severe atherosclerotic vascular disease and a history of ischemic colitis with recent SMA stenting with continued abdominal pain and new anasarca. Labs today show a slight increase in his H&H, normal renal function, overall low total protein and albumin but increasing, lactic is at 1.7 and remainder of chemistries are unremarkable. BNP is at 732 with anasarca and JVD appreciated. Although there certainly are some Behavioral complications to all of this history the continued abdominal pain does continue to be a concern. He notes that he has had DVTs he currently is on apixaban he has been having increased palpitations. Possibility of heart failure and pulmonary embolism entertained. No evidence of infection. Abdomen is diffusely tender but certainly not surgical. Will add IV Lasix and will do a CT of the chest abdomen and pelvis looking for pulmonary embolism as well as further evaluating the gut to see if ischemic colitis is continuing to be a problem [id number] notes from [place]'s discharge after hospitalization [id number] tender reviewed Multiple clarifications are indicated: -Despite patient is indication that he had not been on pain medication he in fact has been on morphine sulfate prior to admission and referral to pain management had been initiated -With this admission his SMA stent has been patent and was not intervened upon again -Admission itself was for GI bleed with no source of bleeding identified. Patient had been on Plavix and apixaban. He reports that he had been having multiple falls prior to that. He had some hemorrhoidal bleeding but no melena and GI recommended against additional endoscopy. Bleeding improved while holding his Plavix -He has had moderate anasarca presumably secondary to prior chronic alcohol use with recent echocardiogram that did not suggest significant abnormalities At this time, all of his issues seem to be chronic, known and being addressed. He may benefit from additional Lasix. The continued pain issues are going to be challenging and he clearly is not tolerating the Percocet taper he currently is being allowed. Care is reviewed with patient. He had almost a L out after the 60 mg of IV Lasix and is feeling somewhat improved. Talked about the importance of participating in care completely. Reviewed with staff at the senior care. I recommended considering scheduled narcotic pain medications so that he does not need to ask and there is no change to medications, timing or dosing. A slower taper may be much more appropriate for this gentleman with chronic opioid dependence with addictive features. At this point, all of his issues do appear to be relatively chronic and he is safe for discharge back to his retirement facility Discharge Plan Departure Patient Disposition: Home Clinical Impression: Chronic narcotic dependence, Anasarca, Freeman catheter in place Abdominal pain Qualifiers: Abdominal location: generalized Qualified Code(s): R10.84 - Generalized abdominal pain Instructions: DI for Abdominal Pain-Adult, Edema Activity Restrictions/Additional Instructions: Patient was seen today with complaints of severe abdominal pain, frustrations with obtaining pain medication in the retirement facility, frustrations with physical therapy not happening and complaints of new swelling and scrotal swelling specifically. In reviewing multiple different medical records many of these complaints are chronic Labs are reassuring. There is no evidence of new or worsening renal failure he has had recent echocardiogram that did not suggest abnormalities, he has had multiple scans to suggest that his superior mesenteric artery stent is open. Scans today show no evidence of pulmonary embolism, patent SMA graft and no evidence of swelling or inflammation of bowel wall to suggest ongoing ischemia. He does have anasarca as noticed previously A Freeman catheter was placed for his convenience, he felt that he was incapable of retracting the swollen scrotum back enough to manipulate the glans of his penis into a urinal and that he would have far too much urine for adult undergarment to be helpful. He was given 60 mg of IV Lasix in the ER and did diurese a L of fluid and is feeling better after that He was given a total of 15 mg of oxycodone and is pain-free and sleeping. Clearly still somewhat sensitive to narcotics if this dose of medication is so obviously clinically notable. In discussion with him, he clearly has no insight into his own addiction, addiction behaviors and manipulative behaviors in the senior care. I suggested compromise being scheduled 1 Percocet every [address] he gets the same medication every single time. He does not have to ask for it and he does not need to negotiate with whichever nurse happens to be on duty. From this planning on a very slow taper perhaps decreasing by 2.5 mg of oxycodone every week. I told him if this were to be instituted that he could no longer ask for additional narcotic and would not be given any IV or IM narcotic. I do think this gentleman might be an excellent candidate for Suboxone for his chronic pain and addiction issues Regarding his anasarca, he was having increasing fluid retention on 20 mg of Lasix he responded nicely to the 60 IV. I would recommend increasing to at least 40 mg of Lasix daily. Will leave the Freeman catheter in place and this was reviewed with ANGELES Collazo. Patient is safe for transfer back to [facility] rehab
[2021-03-24 06:47] LABS: Add Manual Diff / Slide Review NO; Basophils Absolute Auto 0 /uL (0-100); Basophils Percent Auto 0.6 % (0-2); Eosinophils Absolute Auto 100 /uL (0-450); Hematocrit 29.5 % (41-53); Hemoglobin 9.7 g/dL (13.5-17.5); Lymphocytes Absolute Auto 1400 /uL (1100-4500); Lymphocytes Percent Auto 22.8 % (25-40); Mean Corpuscular HGB Conc 32.8 % (30-36); Mean Corpuscular Hemoglobin 34.8 PG (26-34); Mean Corpuscular Volume 106.3 fL (80-100); Monocytes Absolute Auto 600 /uL (0-900); Monocytes Percent Auto 10.8 % (3-14); Neutrophils Absolute Auto 3800 /uL (1500-7000); Neutrophils Percent Auto 63.8 % (50-75); Platelet Count 371 X10^3/uL (150-400); Red Blood Cell Count 2.78 X10^6/uL (4.5-5.9); Red Cell Distribution Width 19.3 % (11.6-14.8)
[2021-03-24 06:55] LABS: Alanine Aminotransferase 26 IU/L (<50); Albumin 1.8 g/dL (3.5-5.0); Albumin Globulin Ratio 0.5 (1.0-2.8); Alkaline Phosphatase 258 U/L (38-126); Aspartate Aminotransferase 55 IU/L (17-59); BUN Creatinine Ratio 16.4 (6-22); Bilirubin Total 0.8 mg/dL (0.2-1.3); Blood Urea Nitrogen 12 mg/dL (9-20); Calcium 7.8 mg/dL (8.4-10.2); Carbon Dioxide 26 mmol/L (22-32); Chloride 106 mmol/L (98-107); Creatine Kinase 22 U/L (55-170); Estimated Glomerular Filt Rate > 60.0 mL/min (>60); Globulin 3.7 g/dL (1.7-4.1); Glucose 91 mg/dL (70-100); HEMOLYSIS < 15 (0-50); Lactate (Lactic Acid) 1.7 mmol/L (0.7-2.1); Sodium 135 mmol/L (137-145); Total Protein 5.5 g/dL (6.3-8.2)
[2021-03-24 06:56] LABS: Potassium 3.9 mmol/L (3.4-5.1)
[2021-03-24 07:06] LABS: NT-proBNP (BNP-Adult 18+) 732 pg/mL (<125); Troponin I < 0.012 ng/mL (0.01-0.034)
[2021-03-24] MEDS: HYDROMORPHONE 1 MG INJ IM (07:23)
[2021-03-24] MEDS: ONDANSETRON 4 MG/2 ML INJ IV (07:53)
--- NOTE | 2021-03-24 07:56 | PC.NURSE ---
pt called pulmonologist montes to inform rn that Im sick to my stomach and have some shortness of breath and chest pressure after that shot you gave met MD notified pt vitals repeated, pt on cardiac, nibp, and pulse ox monitor, resp even unlabored nad, ekg obtained and zofran iv given will cont to monitor.
--- NOTE | 2021-03-24 09:30 | DI.CT.S_ITS ---
PROCEDURE: CT ANGIO CHEST ABDOMEN PELVIS INDICATIONS: concern for PE. SMa stent 03/08. ? worsening ischemic colitis TECHNIQUE: Precontrast 5 mm thick sections acquired from the lung apices to the iliac crests. After the administration of intravenous contrast, 2.5 mm thick sections again acquired from the lung apices to the iliac crests. Maximum intensity projection (MIP) oblique sagittal and coronal reformats were then acquired. For radiation dose reduction, the following was used: automated exposure control. COMPARISON: [facility], CT, CT ANGIO ABDOMEN PELVIS, 03/18/2021, 23:47. [facility], CT, CT ABDOMEN PELVIS WITH CONTRAST, 02/14/2021, 0:47. FINDINGS: Image quality: Excellent. AORTA: Intramural hematoma: Absent Maximum hematoma thickness: Not applicable Focal contrast enhancement: Intramural blood pool (< 2 mm neck or imperceptible communication with aortic lumen): Absent . Ulcer-like projection (broad communication with aortic lumen > 3 mm): Absent . Dissection: Absent Lapel classification: Not applicable Maximum aortic diameter: No aneurysm found. Periaortic hematoma: Absent . CHEST: Lungs and pleura: No acute airspace opacities are seen that would indicate likelihood of pneumonia. There is dependent atelectasis, associated with bilateral water density pleural effusions. This is best seen at the lung bases, some. No pleural effusions or pneumothorax. Central and peripheral airways are patent and normal in caliber. Mediastinum: Heart size is normal. No pericardial effusion. No mediastinal or hilar adenopathy by size criteria. Central pulmonary arteries are normal in size, and no pulmonary embolus is found.. Esophagus is normal in caliber. No hiatal hernias. Bones and chest wall: No axillary adenopathy by size criteria. Thyroid gland appears normal where well seen. No suspicious bony lesions. No vertebral body compression fractures. ABDOMEN: Vasculature: Celiac trunk and mesenteric arteries are patent. Renal arteries are also patent. Solid organs: Liver is normal in ize and enhancement. Gallbladder appears previously resected . Biliary system is non dilated. Pancreas enhances normally. Spleen is normal in size and enhancement. No adrenal nodules. Both kidneys are normal in size and enhancement, without hydronephrosis. Peritoneum and bowel: No free air. Bowel loops are normal in caliber and wall thickness. There is water density free fluid within the peritoneal space, [id number] in quantity. This extends into the pelvis. Nodes and vessels: No retroperitoneal or mesenteric adenopathy by size criteria. Inferior vena cava is normal in morphology. There is a reportedly recently placed superior mesenteric artery vascular stent that appears to protrude into the aortic lumen by approximately 6 mm. This stent appears patent with flow extending into the superior mesenteric artery branches more inferiorly. The aorta demonstrates calcific plaquing that is relatively dense, partially reducing the luminal diameter of the aorta. For example, on series 15, image 70, approximately 1/2 of the aortic lumen is filled by calcific plaque. Miscellaneous: No ventral hernias. PELVIS: Genitourinary: Bladder wall thickness is normal. Miscellaneous: No inguinal hernias or adenopathy. No ventral hernias. Water density moderate free fluid is seen within the peritoneal space of the pelvis, moderate in quantity. No area of rim enhancing fluid collection suggestive of abscess formation is seen. Bones: No suspicious bony lesions. No vertebral body compression fractures. IMPRESSION: 1. No aneurysm or dissection involving the aorta is found. 2. The aortic caliber within the abdomen is narrowed due to calcific plaquing, and in 1 area approximately 1/2 of the lumen of the aorta is calcific plaque filled. None 3. A superior mesenteric artery stent is in place, reportedly recently placed. There is protrusion of the proximal stent orifice approximately 6 mm into the aortic lumen, approximating posterior calcific plaquing. The stent appears patent, it is unclear whether there is a degree of compromise of stent function associated with this appearance. 4. There is is a small to moderate bilateral pleural effusion, with secondary atelectasis, and also free fluid to a [id number] degree within the peritoneal space. Body wall anasarca noted. Dictated by: Maikel Carr M.D. on 03/24/2021 at 10:48 Approved by: Maikel Carr M.D. on 03/24/2021 at 11:02
[2021-03-24] MEDS: FUROSEMIDE 100 MG/10 ML VIAL 60 MG IV (09:36)
[2021-03-24] MEDS: OXYCODONE IR 5 MG TABLET 15 MG PO (09:36)
[2021-03-24 10:07] LABS: Ictotest Urine Positive (Negative)
--- NOTE | 2021-03-24 12:02 | PC.NURSE ---
elevated testicles with a pillowcase sling
== END 2021-03-24 14:46 | disposition home or self-care (01) ==
PROVIDERS: Emergency Medicine; Emergency Provider Emergency Medicine
DX: R10.84 Generalized abdominal pain (principal); F11.20 Opioid dependence, uncomplicated; R60.1 Generalized edema; Z97.8 Presence of other specified devices; R00.2 Palpitations
CPT/HCPCS: 36415; 51702; 71275; 74174; 80053; 81003; 82550; 83605; 83880; 84484; 85025; 93005; 93010; 96372; 96374; 96375; 99284; J1170; J1940; J2405; Q9967

== ENCOUNTER 2021-04-19 16:21 | Emergency (ER) | payer OTHER, MEDICAID, SELFPAY ==
[2021-04-19] VITALS (14 sets, daily range): BP systolic 89–106; BP diastolic 54–63; PULSE 75–100; RESP 17–25; TEMP 36.8; O2SAT 94–100
--- NOTE | 2021-04-19 16:25 | DI.RAD.S_ITS ---
PROCEDURE: XR ACUTE ABDOMEN SERIES INDICATIONS: acute abd pain, h/o obstructions. TECHNIQUE: One view chest and two views of the abdomen were acquired. COMPARISON: [facility], CT, CT ANGIO CHEST ABDOMEN PELVIS, 03/24/2021, 9:38. FINDINGS: Surgical changes and devices: None. Chest: Persistent patchy airspace opacity of the bilateral mid and lower lung zones. Heart size is normal. No pleural effusions. No pneumoperitoneum. Abdomen: Bowel gas pattern is nonobstructive. Multiple air-filled loops of colon. No differential air-fluid levels identified. Air is noted within the rectum. Surgical clips are again noted in the mid abdomen. Vascular stents are noted near the midline abdomen.. No suspicious calcifications. Visualized solid organ contours appear normal. Bones: No suspicious bony lesions. IMPRESSION: 1. Persistent patchy ill-defined airspace opacities involving the bilateral mid and lower lung zones. 2. Nonobstructive bowel gas pattern with multiple air-filled loops of colon and air within the region of the rectum. Dictated by: Travon Melo M.D. on 04/19/2021 at 17:30 Approved by: Travon Melo M.D. on 04/19/2021 at 17:34
[2021-04-19 16:55] LABS: Add Manual Diff / Slide Review NO; Basophils Absolute Auto 0 /uL (0-100); Basophils Percent Auto 0.8 % (0-2); Eosinophils Absolute Auto 100 /uL (0-450); Eosinophils Percent Auto 1.8 % (2-4); Hematocrit 36.5 % (41-53); Hemoglobin 12.1 g/dL (13.5-17.5); Lymphocytes Absolute Auto 1300 /uL (1100-4500); Lymphocytes Percent Auto 32.5 % (25-40); Mean Corpuscular HGB Conc 33.3 % (30-36); Mean Corpuscular Hemoglobin 34.1 PG (26-34); Mean Corpuscular Volume 102.6 fL (80-100); Monocytes Absolute Auto 300 /uL (0-900); Monocytes Percent Auto 7.4 % (3-14); Neutrophils Absolute Auto 2300 /uL (1500-7000); Neutrophils Percent Auto 57.5 % (50-75); Platelet Count 279 X10^3/uL (150-400); Red Blood Cell Count 3.56 X10^6/uL (4.5-5.9); Red Cell Distribution Width 15.8 % (11.6-14.8)
[2021-04-19 17:04] LABS: Lactate (Lactic Acid) 1.2 mmol/L (0.7-2.1)
[2021-04-19 17:05] LABS: Alanine Aminotransferase 20 IU/L (<50); Albumin 2.1 g/dL (3.5-5.0); Albumin Globulin Ratio 0.5 (1.0-2.8); Alkaline Phosphatase 270 U/L (38-126); Aspartate Aminotransferase 51 IU/L (17-59); BUN Creatinine Ratio 9.9 (6-22); Bilirubin Total 0.7 mg/dL (0.2-1.3); Blood Urea Nitrogen 7 mg/dL (9-20); Calcium 7.6 mg/dL (8.4-10.2); Carbon Dioxide 28 mmol/L (22-32); Chloride 107 mmol/L (98-107); Estimated Glomerular Filt Rate > 60.0 mL/min (>60); Globulin 4.1 g/dL (1.7-4.1); Glucose 79 mg/dL (70-100); HEMOLYSIS 25 (0-50); Lipase 36 U/L (23-300); Sodium 139 mmol/L (137-145); Total Protein 6.2 g/dL (6.3-8.2)
--- NOTE | 2021-04-19 18:11 | ED_ITS ---
HPI - Abdominal Pain General Chief Complaint: Abdominal Pain Stated Complaint: abd pain Time Seen by Provider: 04/19/21 18:09 Source: patient and EMS Mode of arrival: EMS History of Present Illness HPI narrative: 60M former smoker with extensive abdominal history including SMA stent placed at [facility] in March presents from nursing facility for worsening abdominal pain over the past few days. He had some nausea and vomiting yesterday and now has significant generalized abdominal pain which is worse with motion and improves with rest. He denies any radiation of the pain, stating it is everywhere. He is moaning and pain is difficult to control. He denies any change in bowel habits. He denies any fever or chills. He has been NPO since lunch Related Data Allergies Allergy/AdvReac Type Severity Reaction Status Date / Time bupropion [From Wellbutrin] AdvReac Verified 04/19/21 16:37 citalopram [From Celexa] AdvReac Verified 04/19/21 16:37 duloxetine [From Cymbalta] AdvReac Verified 04/19/21 16:37 fentanyl AdvReac Verified 04/19/21 16:37 gabapentin AdvReac Verified 04/19/21 16:37 guanfacine AdvReac Verified 04/19/21 16:37 lovastatin AdvReac Verified 04/19/21 16:37 milk AdvReac Verified 04/19/21 16:37 naproxen AdvReac Verified 04/19/21 16:37 pravastatin AdvReac Verified 04/19/21 16:37 pregabalin [From Lyrica] AdvReac Verified 04/19/21 16:37 procaine AdvReac Verified 04/19/21 16:37 simvastatin AdvReac Verified 04/19/21 16:37 Jfjjhfi-Nbw-Mki Reductase AdvReac Verified 04/19/21 16:37 Inhibitor Review of Systems Review of Systems Narrative: GENERAL: Denies chills, fatigue, malaise, fever, sweats. HEENT: Denies sinus pain, ear pain, sore throat, difficulty swallowing, dizziness. RESPIRATORY: Denies dyspnea, cough, wheezing, hemoptysis, sputum. CARDIOVASCULAR: Denies chest pain, palpitations, orthopnea, edema, GASTROINTESTINAL: See HPI : Denies dysuria, frequency, incontinence, hematuria, urinary retention. MUSCULOSKELETAL: denies weakness, joint pain, or bony pain SKIN: Denies rash, skin lesions, or other NEUROLOGIC: Denies weakness, headache, numbness, change in speech, confusion, seizures, incoordination. PSYCHIATRIC: No concerning psychosocial issues. 12 point review of systems is negative except for those stated above Patient History Medical History Acute (reversible) ischemia of intestine, part and extent unspecified Anemia Anxiety Chronic kidney disease Chronic narcotic dependence Chronic pain syndrome Chronic pancreatitis Coronary artery disease Depression DVT (deep venous thrombosis) Erectile dysfunction Gastroesophageal reflux disease Hyperlipidemia Hypertension Ischemic colitis Lupus anticoagulant syndrome Osteoporosis Peripheral vascular disease Social History Smoking Status: Former smoker Smoking Status: Former smoker Substance Use Type: former substance user Exam Narrative Exam Narrative: GENERAL: [60] year old patient appears stated age. Well- developed patient, in obvious distress. HEAD: Atraumatic. Normocephalic. EYES: Pupils equal round and reactive. Extraocular motions intact. No scleral icterus. No injection or drainage. ENT: Nose without bleeding, purulent drainage. Throat without erythema, tonsillar hypertrophy or exudate. Airway patent. NECK: Trachea midline. Non tender CARDIOVASCULAR: Regular rate and rhythm without murmurs, gallops, or rubs. RESPIRATORY: Clear to auscultation. Breath sounds equal bilaterally. No wheezes, rales, or rhonchi. GASTROINTESTINAL: Protuberant, firm abdomen with pain out of proportion to exam, decreased bowel sounds EXTREMITIES: No edema or joint tenderness. BACK: Nontender without deformity or crepitance. No flank tenderness. NEURO: AOx3. SKIN: No rash or erythema of visible areas Initial Vital Signs Initial Vital Signs: Vital Signs Temperature 98.3 F 04/19/21 16:37 Pulse Rate 82 04/19/21 16:37 Respiratory Rate 20 04/19/21 16:37 Blood Pressure 100/55 L 04/19/21 16:37 Pulse Oximetry 98 04/19/21 16:37 Course Orders Ordered: ED Orders 04/19/21 16:24 EKG-12 Lead Stat 04/19/21 16:25 XR acute abdomen series Stat 04/19/21 16:40 Complete Blood Count AUTO DIFF Stat Comprehensive Metabolic Panel Stat Lactate (Lactic Acid) Stat Lipase Stat 04/19/21 18:12 CT abdomen pelvis w con Stat 04/19/21 19:20 COVID19 -Nasal swab/Pre-Proc Stat Discontinued Medications Hydromorphone HCl (Hydromorphone 1 Mg Inj) 1 mg IV NOW ONE Stop: 04/19/21 19:41 Last Admin: 04/19/21 20:03 Dose: 1 mg Documented by: ATAYLOR Piperacillin Sod/Tazobactam (Sod 4.5 gm/ Sodium Chloride) 100 mls @ 200 mls/hr IV NOW ONE Stop: 04/19/21 19:41 Last Admin: 04/19/21 20:04 Dose: 200 mls/hr Documented by: SUELLENYLJENNIFER Consultations Consultation #1: Initial call to Teja, who give recommendation/permission to transfer to [facility] if available given history followed by call to Gen Surgery at [facility] (Dave) who is happy to play a role, but requests call to vascular next call to Dr. Winters (Vascular [facility]) happy with ABX and fluids, no need for Heparin at this time. Recommends ED to ED and will contact Gen Surgery to develop plan call to Dr. De Jesus (ED at [facility]) to accept patient. No further recs. [facility] to arrive at 2100. Images pushed. Patient aware of and in agreement with the plan Vital Signs Vital signs: Vital Signs - 8 hr 04/19/21 16:37 04/19/21 17:00 04/19/21 18:04 Temperature 98.3 F Pulse Rate 82 80 84 Respiratory Rate 20 18 20 Blood Pressure 100/55 L 104/57 L 97/58 L Pulse Oximetry 98 98 99 04/19/21 18:51 04/19/21 19:00 04/19/21 19:30 Temperature Pulse Rate 76 77 78 Respiratory Rate 21 20 23 Blood Pressure Pulse Oximetry 100 100 100 04/19/21 19:34 04/19/21 20:00 Temperature Pulse Rate 75 80 Respiratory Rate 19 25 H Blood Pressure 95/54 L 99/63 Pulse Oximetry 99 96 MDM - Abdominal Pain Lab Data Result diagrams: 04/19/21 16:40 04/19/21 16:40 Labs: Lab Results 04/19/21 04/19/21 04/19/21 Range/Units 16:40 16:40 16:40 WBC 4.0 L (4.5-11.0) X10^3/uL RBC 3.56 L (4.5-5.9) X10^6/uL Hgb 12.1 L (13.5-17.5) g/dL Hct 36.5 L (41-53) % MCV 102.6 H (80-100) fL MCH 34.1 H (26-34) PG MCHC 33.3 (30-36) % RDW 15.8 H (11.6-14.8) % Plt Count 279 (150-400) X10^3/uL Neut % (Auto) 57.5 (50-75) % Lymph % (Auto) 32.5 (25-40) % Walker % (Auto) 7.4 (3-14) % Eos % (Auto) 1.8 L (2-4) % Baso % (Auto) 0.8 (0-2) % Neut # (Auto) 2300 (8233-5892) /uL Lymph # (Auto) 1300 (4676-1887) /uL Walker # (Auto) 300 (0-900) /uL Eos # (Auto) 100 (0-450) /uL Baso # (Auto) 0 (0-100) /uL Sodium 139 (137-145) mmol/L Potassium 4.0 (3.4-5.1) mmol/L Chloride 107 (98-107) mmol/L Carbon Dioxide 28 (22-32) mmol/L BUN 7 L (9-20) mg/dL Creatinine 0.71 (0.66-1.25) mg/dL Estimated GFR > 60.0 (>60) mL/min BUN/Creatinine Ratio 9.9 (6-22) Glucose 79 (70-100) mg/dL Lactate 1.2 (0.7-2.1) mmol/L Calcium 7.6 L (8.4-10.2) mg/dL Total Bilirubin 0.7 (0.2-1.3) mg/dL AST 51 (17-59) IU/L ALT 20 (<50) IU/L Alkaline Phosphatase 270 H (38-126) U/L Total Protein 6.2 L (6.3-8.2) g/dL Albumin 2.1 L (3.5-5.0) g/dL Globulin 4.1 (1.7-4.1) g/dL Albumin/Globulin Ratio 0.5 L (1.0-2.8) Lipase 36 (23-300) U/L SARS-CoV-2 (PCR) (Negative) 04/19/21 Range/Units 19:20 WBC (4.5-11.0) X10^3/uL RBC (4.5-5.9) X10^6/uL Hgb (13.5-17.5) g/dL Hct (41-53) % MCV (80-100) fL MCH (26-34) PG MCHC (30-36) % RDW (11.6-14.8) % Plt Count (150-400) X10^3/uL Neut % (Auto) (50-75) % Lymph % (Auto) (25-40) % Walker % (Auto) (3-14) % Eos % (Auto) (2-4) % Baso % (Auto) (0-2) % Neut # (Auto) (6317-8504) /uL Lymph # (Auto) (4306-8759) /uL Walker # (Auto) (0-900) /uL Eos # (Auto) (0-450) /uL Baso # (Auto) (0-100) /uL Sodium (137-145) mmol/L Potassium (3.4-5.1) mmol/L Chloride (98-107) mmol/L Carbon Dioxide (22-32) mmol/L BUN (9-20) mg/dL Creatinine (0.66-1.25) mg/dL Estimated GFR (>60) mL/min BUN/Creatinine Ratio (6-22) Glucose (70-100) mg/dL Lactate (0.7-2.1) mmol/L Calcium (8.4-10.2) mg/dL Total Bilirubin (0.2-1.3) mg/dL AST (17-59) IU/L ALT (<50) IU/L Alkaline Phosphatase (38-126) U/L Total Protein (6.3-8.2) g/dL Albumin (3.5-5.0) g/dL Globulin (1.7-4.1) g/dL Albumin/Globulin Ratio (1.0-2.8) Lipase (23-300) U/L SARS-CoV-2 (PCR) Negative (Negative) Imaging Data CT scan - abdomen/pelvis: Radiologist's Impression: Chart Viewer Diagnostics DATE TYPE STATUS REF RANGE/AUTHOR Hx Today 18:12 Travon Melo Today 16:25 Travon Melo 03/24/21 09:30 Maikel Carr 03/20/21 20:09 Jorge Pardo 03/18/21 22:46 Deven Pichardo 60, M0 1960 REG ER, Main ED R07 113kg Abdominal Pain Search Chart No Data to Display No Data to Display ONSET Today 20:00 Maikel Dominguez 60 M [address] [id number] Scan ReportSigned Patient: Maikel Dominguez LMR#: [id number]: 1960cct:[id number]/Sex: 60 / MDate of Service: 04/19/21Loc: EDAccession Number: [id number] Procedure: CT abdomen pelvis w con Ordering Provider: Cornelio Dang D.O. PROCEDURE: CT ABDOMEN PELVIS W CON INDICATIONS: abdominal pain TECHNIQUE: After the administration of intravenous contrast, axial sections acquired from the lung bases to the pubic symphysis. Coronal and sagittal reformats were performed. For radiation dose reduction, the following was used: automated exposure control, adjustment of mA and/or kV according to patient size. COMPARISON: [facility], CT, CT ANGIO CHEST ABDOMEN PELVIS, 03/24/2021, 9:38. FINDINGS: Image quality: Diagnostic Lung bases: Small bilateral pleural effusions are again noted with associated compressive atelectasis. Heart: No significant findings. ABDOMEN: Liver: Stable appearance. No focal intrahepatic abnormalities seen. Gallbladder: Gallbladder is surgically absent Biliary ducts: No biliary ductal dilatation. Pancreas: Unremarkable. Spleen: Unremarkable. Adrenal Glands: Unremarkable. Kidneys and Ureters: Stable appearance of mild left renal atrophy. Multiple left renal cyst, unchanged. No hydronephrosis. Bilateral ureters are normal in course and caliber. Stomach and Bowel: Stomach appears unremarkable. There is nonspecific mild circumferential wall thickening of the distal transverse colon near the splenic flexure. Descending colon and rectum appear unremarkable. There is mild circumferential wall thickening of the transverse colon and ascending colon. There appears to be fatty hypertrophy of the submucosal layer of the ascending colon. This is unchanged. Interval development of moderate circumferential wall thickening of the small bowel with associated inflammatory stranding. This may be extension weighted secondary to moderate amount of scattered ascites. No peritoneal wall enhancement. No organized fluid collection. No free air. No evidence for portal venous gas. Peritoneum: Moderate amount of scattered ascites most pronounced in the lower abdomen and pelvis. Ventral Wall: Stable postsurgical changes of the ventral midline abdomen. Diffuse anasarca and skin thickening. No subcutaneous soft tissue fluid collections visualized. Abdominal Nodes: Redemonstration of extensive atherosclerotic calcifications of the abdominal aorta and iliac vessels. There is severe atherosclerotic calcifications near the origin of the celiac trunk. There is opacification of the splenic hepatic, and gastric arteries, possibly from collateral flow. Redemonstration of SMA stent. There appears to be opacification within the stent itself although the lumen appears somewhat narrow. There is opacification of the superior mesenteric artery distal to the stent. Vessels: Aorta and inferior vena cava are normal in size. PELVIS: Pelvic Organs: Unremarkable. Bladder: Unremarkable. Pelvic Nodes: No enlarged lymph nodes. Miscellaneous: No inguinal hernias are seen. Bones: Unremarkable. No acute compression fractures. IMPRESSION: 1. Interval development of moderate circumferential wall thickening and adjacent inflammatory changes of the small bowel as well as segments of the ascending, and transverse colon as described above. Interval increase in scattered ascites. This may be reactive in etiology. Findings may be inflammatory or infectious in etiology although ischemic bowel not excluded given presence of severe atherosclerotic disease and presence of SMA stent. There is also high-grade narrowing of the proximal celiac trunk with opacification of the more distal segments which may be related to collateral flow. Consider further evaluation with surgical consultation. 2. Diffuse anasarca. 3. Bilateral pleural effusions. Other chronic findings as above. Findings were discussed telephonically with at 1910 hrs. Dictated by: Travon Melo M.D. on 04/19/2021 at 18:58 Approved by: Travon Melo M.D. on 04/19/2021 at 19:15 MDM Narrative Medical decision making narrative: 60-year-old male with concerning abdominal exam, pain out of proportion to the exam and a CT suggesting ischemic bowel requires transfer for possible access to vascular surgery, continuity of care. Though lactate and lack of elevated white blood cell count is reassuring, there is still high level of concern for vascular etiology. We thank [facility] ED/Gen Surg/Vascular for their assistance with this complicated individual. Critical Care Time Critical Care Time Attestation: The high probability of a clinically significant, sudden or life threatening deterioration of the [CV] system(s) required my full and direct attention, intervention and personal management. The aggregate critical care time was [30] minutes. This time is in addition to time spent performing reported procedures but includes the following: [x] Data Review and interpretation [x] Patient assessment and monitoring of vital signs [x] Documentation [x] Medication orders and management Discharge Plan Departure Patient Disposition: [facility] Clinical Impression: Ischemic colitis
[2021-04-19 19:37] LABS: COVID19 -Nasal RAPID Negative (Negative)
[2021-04-19] MEDS: HYDROMORPHONE 1 MG INJ IV (20:03)
[2021-04-19] MEDS: PIPERACILLIN/TAZO 4.5 GM in SODIUM CHLORIDE 0.9% 100 ML 200 ML IV (20:04)
[2021-04-19] MEDS: LACTATED RINGERS 1,000 ML 250 ML IV (20:37)
== END 2021-04-19 21:20 | disposition short-term general hospital (02) ==
PROVIDERS: Emergency Medicine; Emergency Provider Emergency Medicine
DX: K55.9 Vascular disorder of intestine, unspecified (principal); R11.2 Nausea with vomiting, unspecified; Z20.822 Contact with and (suspected) exposure to COVID-19
CPT/HCPCS: 36415; 74022; 74177; 80053; 81003; 83605; 83690; 85025; 87635; 93005; 93010; 96361; 96365; 96375; 99285; 99291; C9803; J1170; J2543